=== PATIENT | female | born 1950 | race Caucasian/White ===

== ENCOUNTER 2023-02-18 14:13 | Emergency (ER) | payer BC, MEDICARE ==
[~2023-02-18] VITALS: Ht 152.4 cm; Wt 90.0 kg
[2023-02-18 14:36] VITALS: BP 134/80
== END 2023-02-18 16:14 | disposition home or self-care (01) ==
LOC: ER 14:14
DX: M25.512 Pain in left shoulder (principal); Z88.1 Allergy status to other antibiotic agents; Z88.8 Allergy status to other drugs, medicaments and biological substances; Z79.899 Other long term (current) drug therapy
CPT/HCPCS: 73030; 99283; A4565